=== PATIENT | female | born 1940 | race Caucasian/White ===

== ENCOUNTER 2016-06-11 16:24 | Emergency (ER) | payer OTHER, MEDICAID ==
--- NOTE | 2016-06-11 16:56 | EDPHY ---
H & P Time Seen by Provider: 06/11/16 16:27 HPI/ROS: Chief complaint. Headache HPI. 76-year-old female here by ambulance with a headache that began last night. Patient tells me that she has headaches once a month. This headache is described as squeezing. She fell 2 weeks ago and hit her head and unsure about loss of consciousness. She also has neck pain. She has had no upper respiratory symptoms or fever. She has had some nausea. The neck pain is worse with movement from side to side and has been present for several days. ROS Constitutional. no fever/chills, no weakness Eyes. no problems with vision ENT. no sore throat, no nasal drainage Cardiovascular. no chest pain Respiratory. no shortness of breath, no cough Abdominal. no abdominal pain, no nausea/vomiting, no diarrhea . no problems urinating MS. Neck pain last several days with possible injury Skin. no rash Lymph. no swollen glands Neuro. Headache and possible recent injury Past Medical/Surgical History: Past medical history significant for GERD, fibromyalgia, COPD, asthma, blind in right eye, migraines, PTSD Social History: Single, nonsmoker, no alcohol Smoking Status: Never smoked Physical Exam: General Appearance: Alert well-developed female mild distress vital signs are stable. She is afebrile Eyes: Pupils equal and round no pallor or injection. ENT, Mouth: Mucous membranes are moist. Respiratory: There are no retractions, lungs are clear to auscultation. Cardiovascular: Regular rate and rhythm. Gastrointestinal: Abdomen is soft and nontender, no masses, bowel sounds normal. Neurological: Awake and alert, sensory and motor exams grossly normal. Speech is normal. Cranial nerves are normal. There is no pronator drift. Finger-nose [id number] are intact bilaterally Skin: Warm and dry, no rashes. Musculoskeletal: Neck is supple nontender. Extremities symmetrical, full range of motion. Psychiatric: Patient is oriented X 3, there is no agitation. Constitutional: Initial Vital Signs Temperature (C) 36.5 C 06/11/16 16:37 Heart Rate 70 06/11/16 16:37 Respiratory Rate 16 06/11/16 16:37 Blood Pressure 169/100 H 06/11/16 16:37 O2 Sat (%) 97 06/11/16 16:37 O2 Delivery Mode Room Air Allergies/Adverse Reactions: acetaminophen [From Percocet] Allergy (Verified 10/15/11 05:26) atorvastatin calcium [From Lipitor] Allergy (Verified 10/15/11 05:22) cephalexin monohydrate [From Keflex] Allergy (Verified 10/15/11 05:25) cerivastatin sodium [From Baycol] Allergy (Verified 10/15/11 05:22) codeine [Codeine] Allergy (Verified 10/15/11 05:26) erythromycin base [Erythromycin Base] Allergy (Verified 10/15/11 05:28) ether [Ether] Allergy (Verified 10/15/11 05:22) fexofenadine HCl [From Rehana] Allergy (Verified 10/15/11 05:22) fluvastatin sodium [From Lescol] Allergy (Verified 10/15/11 05:22) nitrofurantoin [From Macrobid] Allergy (Verified 10/15/11 05:22) nitrofurantoin macrocrystalline [From Macrobid] Allergy (Verified 10/15/11 05:22 ) ofloxacin [From Floxin] Allergy (Verified 10/15/11 05:25) oxybutynin [Oxybutynin] Allergy (Verified 10/15/11 05:22) oxycodone HCl [From Percocet] Allergy (Verified 10/15/11 05:26) Penicillins Allergy (Verified 10/15/11 05:22) pravastatin sodium [From Pravachol] Allergy (Verified 10/15/11 05:22) propoxyphene napsylate [From Darvocet-N 100] Allergy (Verified 10/15/11 05:27) simvastatin [From Zocor] Allergy (Verified 10/15/11 05:22) Sulfa (Sulfonamide Antibiotics) Allergy (Verified 10/15/11 05:22) trimethoprim Allergy (Verified 10/15/11 05:29) ALL STATINS Allergy (Uncoded 10/15/11 05:22) SOME MEDICAT DYES Allergy (Uncoded 10/15/11 05:30) Home Medications: Medication Instructions Recorded Aspirin EC [Aspirin EC 81 mg (OTC)] 81 mg PO DAILY 10/15/11 B12 Unk Dose 10/15/11 Alexis/Mag Citrate Unk Dose 10/15/11 DULoxetine [Cymbalta 30 MG (RX)] 30 mg PO BID 10/15/11 Demerol Unk Dose 10/15/11 Gabapentin [Neurontin 100 MG (RX)] 800 mg PO DAILY 10/15/11 Levothyroxine [Synthroid 75 mcg 75 mcg PO DAILY 10/15/11 (RX)] Liothyronine Sodium [Cytomel 5 mcg 5 mcg PO DAILY 10/15/11 (RX)] Niacin [Niacin 500 mg (OTC)] 1,000 mg PO DAILY 10/15/11 Super [place] 3 Unk Dose 10/15/11 Vitamin B Complex [B Complex] 1 each PO DAILY 10/15/11 Vitamin D-3 Unk Dose 10/15/11 Medical Decision Making - Diagnostics Imaging Results: Imaging Impressions Cervical Spine CT 06/11/16 17:10 Impression: No evidence for acute intracranial abnormality. Mild to moderate periventricular and deep hemispheric white matter change that can be seen with small vessel ischemic disease. CT Cervical Spine, Without Contrast History: History of recent trauma. Headache. Pain. Technique: 1.25-mm helical images were obtained of the cervical spine, without contrast. Multiplanar reformation was performed. Radiation dose reduction technique was utilized. Findings: No evidence for an acute fracture. There is 3 mm of anterolisthesis of C3 on C4, with partial fusion of the vertebral bodies. There is fusion of the facets. This is also fusion of C4 and C5. Disk height narrowing and osteophytosis are seen at C5-C6 and C6-C7. Degenerative change is seen in the anterior arch of C1 articulation with the dens and erosive change of the dens. Vascular calcifications are seen in the carotids bilaterally indicating atherosclerotic disease. Impression: No evidence for acute fracture. Multilevel degenerative change cervical spine, as above. Evidence of atherosclerotic disease in the carotid arteries. Results called and discussed with Carlos Eduardo Rubio M.D., on June 11, 2016 at [address] 06/11/16 17:10 Impression: No evidence for acute intracranial abnormality. Mild to moderate periventricular and deep hemispheric white matter change that can be seen with small vessel ischemic disease. CT Cervical Spine, Without Contrast History: History of recent trauma. Headache. Pain. Technique: 1.25-mm helical images were obtained of the cervical spine, without contrast. Multiplanar reformation was performed. Radiation dose reduction technique was utilized. Findings: No evidence for an acute fracture. There is 3 mm of anterolisthesis of C3 on C4, with partial fusion of the vertebral bodies. There is fusion of the facets. This is also fusion of C4 and C5. Disk height narrowing and osteophytosis are seen at C5-C6 and C6-C7. Degenerative change is seen in the anterior arch of C1 articulation with the dens and erosive change of the dens. Vascular calcifications are seen in the carotids bilaterally indicating atherosclerotic disease. Impression: No evidence for acute fracture. Multilevel degenerative change cervical spine, as above. Evidence of atherosclerotic disease in the carotid arteries. Results called and discussed with Carlos Eduardo Rubio M.D., on June 11, [address] head and neck reviewed by me and discussed with Dr. Brush shows no evidence of acute findings Procedures: IV Benadryl and Toradol ED Course/Re-evaluation: Re-evaluation at 5:45 p.m.--patient is stable. Her headache is less. She has conversing normally. Neurologically intact. Patient and I discussed imaging and lab results. We discussed treatment plan including criteria for return importance of follow-up and further evaluation. She expresses understanding and agreement Differential Diagnosis: I considered intracranial injury and bleeding, cervical spine injury, migraine, meningitis and infection - Data Points Laboratory Results: Laboratory Results 06/11/16 16:45 06/11/16 16:45 06/11/16 06/11/16 16:45 16:45 WBC 6.83 10^3/uL 10^3/uL (3.80-9.50) RBC 5.01 10^6/uL 10^6/uL (4.18-5.33) Hgb 15.1 g/dL g/dL (12.6-16.3) Hct 45.2 % % (38.0-47.0) MCV 90.2 fL fL (81.5-99.8) MCH 30.1 pg pg (27.9-34.1) MCHC 33.4 g/dL g/dL (32.4-36.7) RDW 14.8 % % (11.5-15.2) Plt Count 244 10^3/uL 10^3/uL (150-400) MPV 10.8 fL fL (8.7-11.7) Neut % (Auto) 57.0 % % (39.3-74.2) Lymph % (Auto) 29.3 % % (15.0-45.0) [place] % (Auto) 9.1 % % (4.5-13.0) Eos % (Auto) 3.7 % % (0.6-7.6) Baso % (Auto) 0.6 % % (0.3-1.7) Nucleat RBC Rel Count 0.0 % % (0.0-0.2) Absolute Neuts (auto) 3.90 10^3/uL 10^3/uL (1.70-6.50) Absolute Lymphs (auto) 2.00 10^3/uL 10^3/uL (1.00-3.00) Absolute Monos (auto) 0.62 10^3/uL 10^3/uL (0.30-0.80) Absolute Eos (auto) 0.25 10^3/uL 10^3/uL (0.03-0.40) Absolute Basos (auto) 0.04 10^3/uL 10^3/uL (0.02-0.10) Absolute Nucleated RBC 0.00 10^3/uL 10^3/uL (0-0.01) Immature Gran % 0.3 % % (0.0-1.1) Immature Gran # 0.02 10^3/uL 10^3/uL (0.00-0.10) Sodium 139 mEq/L mEq/L (134-144) Potassium 4.2 mEq/L mEq/L (3.5-5.2) Chloride 104 mEq/L mEq/L (97-110) Carbon Dioxide 24 mEq/l mEq/l (22-31) Anion Gap 11 mEq/L mEq/L (8-16) BUN 19 mg/dL mg/dL (7-23) Creatinine 0.7 mg/dL mg/dL (0.6-1.0) Estimated GFR > 60 Glucose 79 mg/dL mg/dL (70-100) Calcium 10.5 mg/dL H mg/dL (8.5-10.4) Medications Given: Discontinued Medications Diphenhydramine HCl (Benadryl Injection) 12.5 mg IVP EDNOW ONE Stop: 06/11/16 17:09 Last Admin: 06/11/16 17:45 Dose: Not Given Ketorolac Tromethamine (Toradol) 15 mg IVP EDNOW ONE Stop: 06/11/16 17:09 Last Admin: 06/11/16 17:45 Dose: 15 mg Departure - Departure Disposition: Home, Routine, Self-Care Clinical Impression: Headache Qualifiers: Headache type: unspecified Headache chronicity pattern: episodic headache Condition: Good Instructions: Acute Headache (ED) Additional Instructions: Continue regular medications. Return for worsening symptoms. Re-evaluation by your regular physician in 2-3 days. Referrals: Patient,NotPresent [Unknown] - As per Instructions TOÑA ZAVALA [Non Staff Provider (MD)] - 2-3 days, call for appt.
[2016-06-11] MEDS ORDERED: KETOROLAC 30 MG/1 ML SDV IVP ONE (17:08)
[2016-06-11 17:20] LABS: % IMMATURE GRANULYOCYTES 0.3 % (0.0-1.1); ABSOLUTE IMMATURE GRANULOCYTES 0.02 10^3/uL (0.00-0.10); ADD DIFF? NO; ADD MORPH? NO; ADD SCAN? NO; ATYPICAL LYMPHOCYTE FLAG 0 (0-99); FRAGMENT RBC FLAG 0 (0-99); HEMATOCRIT 45.2 % (38.0-47.0); HEMOGLOBIN 15.1 g/dL (12.6-16.3); LEFT SHIFT FLG 0 (0-99); LIPEMIA HEMOLYSIS FLAG 80 (0-99); MEAN CELL HEMOGLOBIN 30.1 pg (27.9-34.1); MEAN CELL HEMOGLOBIN CONCENTR. 33.4 g/dL (32.4-36.7); MEAN CELL VOLUME 90.2 fL (81.5-99.8); MEAN PLATELET VOLUME 10.8 fL (8.7-11.7); PLATELET CLUMPS FLAG 10 (0-99); PLATELET COUNT 244 10^3/uL (150-400); RED BLOOD CELL COUNT 5.01 10^6/uL (4.18-5.33); RED CELL DISTRIBUTION WIDTH 14.8 % (11.5-15.2)
[2016-06-11 17:28] LABS: ANION GAP 11 mEq/L (8-16); CALCIUM 10.5 mg/dL (8.5-10.4); CARBON DIOXIDE 24 mEq/l (22-31); CHLORIDE 104 mEq/L (97-110); CREATININE 0.7 mg/dL (0.6-1.0); GLOMERULAR FILTRATION RATE > 60; GLUCOSE 79 mg/dL (70-100); POTASSIUM 4.2 mEq/L (3.5-5.2); SODIUM 139 mEq/L (134-144)
[2016-06-11 18:56] VITALS: BP 155/76; PULSE 72; RESP 14; TEMP 97.2; O2SAT 96
== END 2016-06-11 18:30 | disposition home or self-care (01) ==
LOC: EDUNIT#
DX: R51 Headache (principal); J44.9 Chronic obstructive pulmonary disease, unspecified; Z79.82 Long term (current) use of aspirin
CPT/HCPCS: 70450; 72125; 96374; 99285; J1200; J1885